=== PATIENT | male | born 1990 | race Caucasian/White ===

== ENCOUNTER 2018-10-17 12:43 | Emergency (ER) | payer OTHER ==
[2018-10-17 12:49] VITALS: BMI 35.9
--- NOTE | 2018-10-17 13:47 | PDOC ---
History of Present Illness - General Chief Complaint: Pain, Acute Stated Complaint: NAUSEA Time Seen by Provider: 10/17/18 13:36 History Source: Patient Exam Limitations: No Limitations - History of Present Illness Initial Comments: 10/17/18 15:14 CHIEF COMPLAINT: Abdominal pain HISTORY OF PRESENT ILLNESS: This is an otherwise healthy 27-year-old male who presents for evaluation of abdominal pain. Pain started in the left flank area yesterday, and was very intense. It has now moved around to the left side of the abdomen and down to the left groin. Patient reports some dysuria and nausea. He denies fevers/chills, vomiting, hematuria, or any other symptoms. Vital signs on arrival are notable for mildly elevated blood pressure 145 systolic. Smoking: Patient is a daily smoker, one pack per day 10 years. REVIEW OF SYSTEMS: GENERAL/CONSTITUTIONAL: No fever or chills. No weakness. No weight change. HEAD, EYES, EARS, NOSE AND THROAT: No change in vision. No ear pain or discharge. No sore throat. CARDIOVASCULAR: No chest pain or palpitations. RESPIRATORY: No cough, wheezing, or shortness of breath. GASTROINTESTINAL: Nausea. No vomiting, diarrhea or constipation. GENITOURINARY: See HPI. MUSCULOSKELETAL: No joint or muscle swelling or pain. No neck or back pain. SKIN: No rash or easy bruising. NEUROLOGIC: No headache, vertigo, loss of consciousness, or loss of sensation. PSYCHIATRIC: No depression or anxiety. ENDOCRINE: No increased thirst. No abnormal weight change. HEMATOLOGIC/LYMPHATIC: No anemia, easy bleeding, or history of blood clots. ALLERGIC/IMMUNOLOGIC: No hives or skin allergy. No latex allergy. PHYSICAL EXAM: GENERAL: The patient is awake, alert, and fully oriented, in no acute distress. HEAD: Normal with no signs of trauma. ENT: Pupils equal, round and reactive to light, extraocular movements intact, sclera anicteric, conjunctiva clear. Neck supple. LUNGS: Clear to auscultation bilaterally. Normal excursion. No respiratory distress or use of accessory muscles. CV: RRR, S1/S2, no MRG. Cap refill < 2 sec. ABDOMEN: Soft, non-distended, mild LLQ tenderness, no CVA tenderness. EXTREMITIES: Normal range of motion, no edema. NEUROLOGICAL: Normal speech, normal gait. CN II-XII grossly intact. PSYCH: Normal mood, normal affect. SKIN: Warm, dry, normal turgor, no rashes or lesions noted. 10/17/18 15:15 Past History - Past Medical History Allergies/Adverse Reactions: Allergies Allergy/AdvReac Type Severity Reaction Status Date / Time No Known Allergies Allergy Verified 10/17/18 12:49 Home Medications: Ambulatory Orders NK [No Known Home Medication] 12/08/14 COPD: No Other medical history: denies - Suicide/Smoking/Psychosocial Hx Smoking History: Current every day smoker Have you smoked in the past 12 months: No Number of Cigarettes Smoked Daily: 10 Information on smoking cessation initiated: No Hx Alcohol Use: No Drug/Substance Use Hx: No *Physical Exam - Vital Signs Last Vital Signs Temp Pulse Resp BP Pulse Ox 98.1 F 79 18 145/84 98 10/17/18 12:45 10/17/18 12:45 10/17/18 12:45 10/17/18 12:45 10/17/18 12:45 ED Treatment Course - LABORATORY CBC & Chemistry Diagram: 10/17/18 14:59 10/17/18 14:59 Medical Decision Making - Medical Decision Making 10/17/18 16:25 A/P: 27 year old male with flank/abdominal groin pain and nausea. UA without evidence of infection Cr within normal limits CTAP: 4mm nonobstructing left lower renal pole sotne Will rx Flomax and Zofran, patient was already rx'd analgesia by his PCP *DC/Admit/Observation/Transfer Diagnosis at time of Disposition: Kidney stone on left side - Discharge Dispostion Disposition: HOME Condition at time of disposition: Improved Decision to Admit order: No - Referrals - Patient Instructions Printed Discharge Instructions: DI for Kidney Stones Additional Instructions: -Rest and stay well hydrated -Continue taking the pain medication given to by her primary care doctor -Take Zofran as needed as prescribed for nausea and Flomax as prescribed to help the stone pass -Return here for uncontrolled pain, change in urination, fever, or any other concerning symptoms - Post Discharge Activity
[2018-10-17] MEDS ORDERED: KETOROLAC TROMETHAMINE 30 MG/1 ML VIAL IVPUSH ONE (14:04)
[2018-10-17] MEDS ORDERED: ONDANSETRON 4 MG/2 ML VIAL IVPUSH ONE (14:04)
--- NOTE | 2018-10-17 14:07 | PDOC ---
*Physical Exam - Vital Signs Last Vital Signs Temp Pulse Resp BP Pulse Ox 98.1 F 79 18 145/84 98 10/17/18 12:45 10/17/18 12:45 10/17/18 12:45 10/17/18 12:45 10/17/18 12:45 ED Treatment Course - LABORATORY CBC & Chemistry Diagram: 10/17/18 14:59 10/17/18 14:59 Medical Decision Making - Medical Decision Making 10/17/18 14:06 Pt seen by Midlevel Provider under my direct supervision Ancillary studies reviewed I agree with plan as outlined by Midlevel Provider *DC/Admit/Observation/Transfer Diagnosis at time of Disposition: Kidney stone on left side - Discharge Dispostion Disposition: HOME Condition at time of disposition: Improved - Prescriptions Prescriptions: Ondansetron [Zofran Odt -] 4 mg SL TID PRN #21 od.tablet PRN Reason: Nausea Tamsulosin HCl [Flomax] 0.4 mg PO DAILY #7 capsule - Referrals - Patient Instructions Printed Discharge Instructions: DI for Kidney Stones Additional Instructions: -Rest and stay well hydrated -Continue taking the pain medication given to by her primary care doctor -Take Zofran as needed as prescribed for nausea and Flomax as prescribed to help the stone pass -Return here for uncontrolled pain, change in urination, fever, or any other concerning symptoms - Post Discharge Activity
[2018-10-17 14:39] LABS: EPI CELLS 1.6 /HPF (0-5/HPF); URINE APPEARANCE CLEAR; URINE BACTERIA 0.8 /hpf (NEGATIVE); URINE BILIRUBIN NEGATIVE (NEGATIVE); URINE CASTS 18 /lpf (0-8); URINE COLOR DK YELLOW; URINE GLUCOSE (UA) NEGATIVE (NEGATIVE); URINE KETONE TRACE (NEGATIVE); URINE LEUK ESTERASE NEGATIVE (NEGATIVE); URINE NITRITE NEGATIVE (NEGATIVE); URINE PROTEIN 1+ (NEGATIVE); URINE RBC 1 /hpf (0-4); URINE WBC 2 /hpf (0-5)
[2018-10-17] MEDS ORDERED: ONDANSETRON 4 MG/2 ML VIAL ONE (15:14)
[2018-10-17] MEDS ORDERED: KETOROLAC TROMETHAMINE 30 MG/1 ML VIAL ONE (15:14)
[2018-10-17 15:25] LABS: BASO % 0.3 % (0-2.0); EOS % 0.8 % (0-4.5); HEMATOCRIT 48.4 % (35.4-49); HEMOGLOBIN 16.6 GM/dL (11.7-16.9); LYMPH % 12.2 % (8-40); MCH 30.7 pg (25.7-33.7); MCHC 34.3 g/dl (32.0-35.9); MEAN CELL VOLUME 89.4 fl (80-96); MEAN PLT VOLUME 8.4 fl (7.5-11.1); NEUT % 79.7 % (42.8-82.8); PLATELET COUNT 247 K/MM3 (134-434); RBC 5.41 M/mm3 (4.00-5.60); RDW 13.2 % (11.9-15.9); WHITE BLOOD COUNT 10.7 K/mm3 (4.0-10.0)
[2018-10-17 15:45] LABS: ALBUMIN 4.2 g/dl (3.4-5.0); ALK PHOS 76 U/L (45-117); ANION GAP 5 MMOL/L (8-16); BILIRUBIN,TOTAL 0.3 mg/dL (0.2-1); BLOOD UREA NITROGEN 12 mg/dL (7-18); CALCIUM 9.2 mg/dL (8.5-10.1); CHLORIDE 107 mmol/L (98-107); CO2 29 mmol/L (21-32); CREATININE 0.9 mg/dL (0.55-1.3); GLUCOSE,RANDOM 99 mg/dL (74-106); POTASSIUM 4.1 mmol/L (3.5-5.1); SGOT/AST 33 U/L (15-37); SGPT/ALT 56 U/L (13-61); SODIUM 141 mmol/L (136-145); TOT PROT 7.5 g/dl (6.4-8.2)
[2018-10-17] MEDS ORDERED: ONDANSETRON *ODT* 4 MG TABLET SL ONE (16:25)
[2018-10-17] MEDS ORDERED: ONDANSETRON *ODT* 4 MG TABLET ONE (16:28)
[2018-10-17 16:38] VITALS: BP 126/78; PULSE 76; TEMP 98.6
== END 2018-10-17 16:38 | disposition home or self-care (01) ==
LOC: JER 12:43
PROC: 3E0333Z Introduction of Anti-inflammatory into Peripheral Vein, Percutaneous Approach (ICD-10-PCS; principal; 2018-10-17)
PROC: 3E033GC Introduction of Other Therapeutic Substance into Peripheral Vein, Percutaneous Approach (ICD-10-PCS; 2018-10-17)
DX: N20.0 Calculus of kidney (principal); F17.210 Nicotine dependence, cigarettes, uncomplicated
CPT/HCPCS: 36415; 74176-TC; 80053; 81003; 85025; 87086; 99281-25

== ENCOUNTER 2023-08-28 04:39 | Day surgery (SDC) | payer OTHER ==
[2023-08-25 08:30] VITALS: BMI 26.6
[2023-08-28] MEDS ORDERED: PROPOFOL 20 ML ONE (12:31)
[2023-08-28] MEDS ORDERED: MIDAZOLAM HCL 2 MG/2 ML SINGLE DOSE VIAL ONE (12:32)
[2023-08-28] MEDS ORDERED: LIDOCAINE HCL/PF 2% SDV 5ML VIAL ONE (12:32)
[2023-08-28] MEDS ORDERED: ONDANSETRON 4 MG/2 ML VIAL ONE (12:32)
[2023-08-28] MEDS ORDERED: DEXAMETHASONE SOD PHOSPHATE 4 MG/1 ML VIAL ONE (12:32)
[2023-08-28] MEDS ORDERED: SEVOFLURANE 250 ML BTL ONE (12:32)
[2023-08-28] MEDS ORDERED: ceFAZolin SODIUM 1 GM VIAL ONE (12:32)
[2023-08-28] MEDS ORDERED: ACETAMINOPHEN INJECTION 100 ML IVPB ONE (12:37)
[2023-08-28] MEDS ORDERED: ONDANSETRON 4 MG/2 ML VIAL IVPUSH PRN (12:43)
[2023-08-28] MEDS ORDERED: PROMETHAZINE HCL 25 MG/1 ML VIAL IVPB PRN (12:43)
[2023-08-28] MEDS ORDERED: oxyCODONE HCL 5 MG TABLET PO PRN ×2 (12:43)
[2023-08-28] MEDS ORDERED: LACTATED RINGERS SOLUTION 1,000 ML IV SCH (12:45)
[2023-08-28] MEDS ORDERED: LIDOCAINE HCL 2% (20ML MULTI-DOSE VIAL) ONE (13:33)
[2023-08-28] MEDS: ceFAZolin SODIUM 1 GM VIAL IVPB ONE (13:34)
[2023-08-28] MEDS ORDERED: KETOROLAC TROMETHAMINE 30 MG/1 ML VIAL ONE (13:35)
[2023-08-28] MEDS: LIDOCAINE HCL 2% (50ML VIAL) INF ONE (13:47)
[2023-08-28] MEDS ORDERED: ELECTROLYTE-148 SOLN 1,000 ML IV SCH (14:15)
[2023-08-28 16:04] VITALS: PULSE 70; RESP 16
[2023-08-28 16:44] VITALS: BP 115/61; TEMP 98.7
== END 2023-08-28 17:05 | disposition home or self-care (01) ==
LOC: JASU-SURG 04:39
PROVIDERS: ATTEND Urology
PROC: 0VTTXZZ Resection of Prepuce, External Approach (ICD-10-PCS; principal; 2023-08-28 12:30)
DX: N47.1 Phimosis (principal)
CPT/HCPCS: 88304-TC; 94760; J0131

== ENCOUNTER 2024-03-09 09:06 | Emergency (ER) | payer OTHER ==
[2024-03-09 09:15] VITALS: BMI 25.8
[2024-03-09 10:29] LABS: PROTHROMBIN TIME (PATIENT) 11.3 SEC (9.7-13.0)
[2024-03-09 10:32] LABS: ACTIVATED PTT 35.6 SECONDS (25.2-36.5)
[2024-03-09] MEDS ORDERED: IBUPROFEN 400 MG TABLET (FP) PO ONE (10:40)
[2024-03-09 10:41] LABS: POTASSIUM 4.1 mmol/L (3.5-5.1)
[2024-03-09 10:43] LABS: ALBUMIN 4.2 g/dl (3.4-5.0); CALCIUM 9.5 mg/dL (8.5-10.1)
[2024-03-09] MEDS: IBUPROFEN 400 MG TABLET (FP) PO ONE (10:43)
[2024-03-09 10:47] LABS: CREATININE 0.8 mg/dL (0.55-1.3)
[2024-03-09 10:48] LABS: BILIRUBIN,TOTAL 0.6 mg/dL (0.2-1); TOT PROT 7.4 g/dl (6.4-8.2)
[2024-03-09 10:54] LABS: BASO % 0.5 % (0-2.0); EOS % 1.2 % (0-4.5); HEMATOCRIT 47.7 % (35.4-49); HEMOGLOBIN 16.4 GM/dL (11.7-16.9); LYMPH % 26.1 % (8-40); MCH 31.3 pg (25.7-33.7); MCHC 34.4 g/dl (32.0-35.9); MEAN CELL VOLUME 90.9 fl (80-96); MEAN PLT VOLUME 7.8 fl (7.5-11.1); MONO % 12.2 % (3.8-10.2); PLATELET COUNT 214 10^3/uL (134-434); RBC 5.24 M/mm3 (4.00-5.60); RDW 13.2 % (11.9-15.9); WHITE BLOOD COUNT 4.7 K/mm3 (4.0-10.0)
[2024-03-09 12:32] LABS: HIV INTERPRETATION NEGATIVE (NEGATIVE)
[2024-03-09 13:41] VITALS: PULSE 62
[2024-03-09 15:15] VITALS: BP 118/72; RESP 15; TEMP 97.5
== END 2024-03-09 15:15 | disposition home or self-care (01) ==
LOC: JER 09:06
DX: R09.1 Pleurisy (principal); R06.02 Shortness of breath; R50.9 Fever, unspecified; Z20.822 Contact with and (suspected) exposure to COVID-19
CPT/HCPCS: 0241U-QW; 36415; 71046-TC-FY; 71275-TC; 80053; 84484; 85025; 85379; 85610; 85730; 86803; 86850; 86900; 86901; 87389; 93005; 93010; 99285-25; Q9967